=== PATIENT | female | born 1955 | race Caucasian/White ===

== ENCOUNTER → 2019-12-03 | Outpatient (REF) | payer OTHER | LOC: M SFHCLUC 15:40 | PROVIDERS: ATTEND Physician Assistant | DX: L02.419 Cutaneous abscess of limb, unspecified (principal) ==

== ENCOUNTER 2020-05-06 11:07 | Emergency (ER) | payer OTHER ==
[~2020-05-06] VITALS: Ht 165.1 cm; Wt 109.3 kg
[2020-05-06] MEDS ORDERED: PANT20TA2 PO (11:23)
[2020-05-06] MEDS ORDERED: BISO5TAB14 PO (11:23)
[2020-05-06] MEDS ORDERED: HYDR25TAB PO (11:23)
[2020-05-06] MEDS ORDERED: LETR2.5T2 PO (11:23)
[2020-05-06] MEDS ORDERED: METF-838 PO (11:23)
[2020-05-06] MEDS ORDERED: BACT800T5 PO (11:41)
[2020-05-06] MEDS ORDERED: HYDR25OIN TOP (11:41)
[2020-05-06 12:06] VITALS: BP 164/89
== END 2020-05-06 12:08 | disposition home or self-care (01) ==
LOC: M ED 11:07
DX: N61.0 Mastitis without abscess (principal); I10 Essential (primary) hypertension; E11.9 Type 2 diabetes mellitus without complications; K21.9 Gastro-esophageal reflux disease without esophagitis; Z85.3 Personal history of malignant neoplasm of breast